=== PATIENT | male | born 1985 | race Caucasian/White ===

== ENCOUNTER 2019-05-26 08:25 | Emergency (ER) | payer BC, SELFPAY ==
[2019-05-26 08:26] VITALS: BP 156/89; PULSE 91; RESP 18; TEMP 36.5; O2SAT 97; BMI 51.4
--- NOTE | 2019-05-26 09:07 | ED.VIS.GEN ---
History of Present Illness Chief Complaint: Cellulitis Informant: Patient Onset: Yesterday Narrative: Patient presents to the ED with area of redness and warmth to his right lower leg. He states he noticed it this morning. Yesterday at work he was experiencing flulike symptoms which he describes as feeling feverish and chilled. He states that he believes he was bitten by an insect and this is what has caused this. He is an area of dry red flaky skin just proximal to this area that has been there for years. Past Medical History - Allergies and Home Meds Allergies/Adverse Reactions: Allergies No Known Allergies Allergy (Verified 05/26/19 08:25) Primary Care Physician: Care Physician,No Primary [Primary Care Provider] - Smoking Status: Never smoker Review of Systems General: Reports: Chills, Fever. Denies: Sweats Eyes: Denies: Visual changes - bilaterally, Diplopia ENT: Denies: Rhinorrhea, Sore throat Cardiovascular: Denies: Chest pain, Palpitations Respiratory: Denies: Dyspnea, Cough, Dyspnea on exertion Gastrointestinal: Denies: Abdominal pain, Nausea, Vomiting, Diarrhea, Melena, Hematochezia Genitourinary: Denies: Dysuria, Hematuria, Frequency Musculoskeletal: Denies: Back pain, Extremity Pain Skin: Reports: Rash. Denies: Wounds Neurological: Denies: Headache, Weakness, Numbness Physical Exam Vital Signs/Narrative: Vital Signs Temp Pulse Resp BP Pulse Ox 05/26/19 08:26 97.7 F L 91 18 156/89 H 97 General: Well nourished, Well developed, No Acute Distress Head: Normocephalic, Atraumatic Eyes: Perrl, EOMI ENT: Moist mucous membranes, No rhinorrhea Neck: Supple, Nontender Cardiovascular: Regular rate, Regular rhythm, No murmurs Respiratory: No distress, CTA bilaterally, Chest nontender Abdomen: Soft, Nontender, Nondistended, Normal bowel sounds Back: Nontender, Normal Inspection Extremities: Nontender, No edema Skin: - - 3 cm x 4 cm area of erythema and warmth to palpation over the right proximal anterior black. No lymphangitic streaking. Just proximal to this area there is an area of dry flaky macular erythematous skin. No induration or fluctuance. Neurological: Alert, Oriented x3, Cranial nerves II-XII grossly intact, Normal Strength, Normal Sensation Psychological: Normal affect, Normal Mood Diagnostic/Tx/Re-eval - Medical Decision Making Patient presents to the ED with area of erythema and warmth over his right lower leg. He does state that yesterday he was experiencing flulike symptoms. Upon arrival, he appears well and nontoxic. He is afebrile. On physical exam, this area does appear to be a area of cellulitis. Patient will be started on a course of Keflex. He was advised to follow-up with his PCP. He is educated on signs/symptoms to return to the ED. He was provided discharge instructions. He is agreeable to plan Disposition: Home stable. Impression: Right lower extremity cellulitis ED Disposition - Plan for ED Patient: Disposition: Home or Assisted Living Diagnosis: Cellulitis of leg without foot, right Instructions: Cellulitis Prescriptions: Cephalexin [Keflex] 500 mg PO Q6 #40 cap Prescription Printed Referrals: Care Physician,No Primary [Primary Care Provider] -
--- NOTE | 2019-05-26 09:29 | ED.RN ---
DISCHARGE INSTRUCTIONS GIVEN TO AND REVIEWED WITH PATIENT, PATIENT DENIES QUESTIONS OR CONCERNS AND VOICES UNDERSTANDING OF DISCHARGE INSTRUCTIONS. PT AMBULATES OUT OF ROOM WITHOUT DIFFICULTY.
== END 2019-05-26 09:29 | disposition home or self-care (01) ==
LOC: ED 09:25
PROVIDERS: Emergency Provider Physician Assistant
DX: L03.115 Cellulitis of right lower limb (principal)
CPT/HCPCS: 99282

== ENCOUNTER 2020-06-04 07:43 | Emergency (ER) | payer BC, SELFPAY ==
[2020-06-04 07:44] VITALS: BP 201/115; PULSE 83; RESP 15; TEMP 36.6; O2SAT 97; BMI 59.8
[2020-06-04 07:48] VITALS: BP 163/103; PULSE 79; RESP 16; TEMP 36.6; O2SAT 98
--- NOTE | 2020-06-04 07:55 | DCINST.ED_ITS ---
ED Disposition - Plan for ED Patient: Instructions: ED Tooth Pain Prescriptions: Hydrocodone Bitart/Apap 5-325 [[place] 5MG-325MG] 1 tab PO Q6H PRN PRN 2 Days #6 tab PRN Reason: Pain Prescription Printed Referrals: Care Physician,No Primary [Primary Care Provider] -
--- NOTE | 2020-06-04 07:59 | ED.DCSUM_ITS ---
- ER Visit Summary Date of Service: 06/04/20 Chief Complaint: Dental pain History of Present Illness: The patient is a 34 M presenting with dental pain. Patient complains of right lower tooth pain which started on Tuesday. He states it worsened yesterday and he went to urgent care. He was given amoxicil denise and advised to take Motrin and Tylenol for pain. He does not currently have a dentist. He denies fever, swelling or other complaints. Physical Examination: Vitals are stable. Patient is afebrile. Alert no acute distress. HEENT exam right lower molar tenderness and fracture. No surrounding fluctuance. No sublingual edema. Neck is supple. Lungs are clear and equal bilaterally. Heart is regular rate and rhythm. Extremities are unremarkable. Skin is warm and dry. Remainder of exam is unremarkable. Emergency Department Course and Treatment: Patient was advised to follow-up with dentist. He was given a dental referral list. He is advised to continue his antibiotics until complete. He is given a short course of [place]. Advised to continue ibuprofen. Advised to return to the ED for worsening complaints. Disposition: Discharge home Impression: Odontalgia This note was generated with Everbridge dictation software. It may contain incorrect words, spelling, and punctuation that were not noted in review of the chart prior to signing ED Disposition - Plan for ED Patient: Instructions: ED Tooth Pain Prescriptions: Hydrocodone Bitart/Apap 5-325 [[place] 5MG-325MG] 1 tab PO Q6H PRN PRN 2 Days #6 tab PRN Reason: Pain Prescription Printed Referrals: Care Physician,No Primary [Primary Care Provider] -
== END 2020-06-04 08:12 | disposition home or self-care (01) ==
LOC: ED 08:01
PROVIDERS: Emergency Provider Emergency Medicine
DX: K08.89 Other specified disorders of teeth and supporting structures (principal)
CPT/HCPCS: 99282

== ENCOUNTER 2020-12-29 17:45 | Emergency (ER) | payer BC, SELFPAY ==
[2020-12-29 17:46] VITALS: BP 187/109; PULSE 87; RESP 19; TEMP 35.5; O2SAT 98; BMI 60.0
--- NOTE | 2020-12-29 18:04 | ED.DCSUM_ITS ---
History of Present Illness Chief Complaint: Back Informant: Patient Narrative: 35-year-old male presents the emergency department with left lower jaw swelling and right lower back pain. Tells me that his back pain started on Tuesday after he went to see Dr. Mccoy who he is seen for knee pain. He states he does not recall doing anything with it but it was tolerable until today when it got more severe. States he worked last night. He describes his right low back. Nonradiating worse with movements. He denies any red flag history or symptoms. Normal bowel and bladder function. No fevers. The patient also states that he has decayed teeth. Of particular importance today is his left lower jaw which are decayed to the gumline. He states he saw an oral surgeon in [place] was told he needed surgery but did not have the money to pay for it. He states that they started hurting on Tuesday and now he is developed some swelling today. Past Medical History - Allergies and Home Meds Allergies/Adverse Reactions: Allergies No Known Allergies Allergy (Verified 12/29/20 17:48) Primary Care Physician: Care Physician,No Primary [Primary Care Provider] - Past Medical History: - - Morbid obesity Surgical History: noncontributory Lives: With Family Smoking Status: Never smoker Drugs: None Review of Systems General: Denies: Chills, Fever, Sweats Eyes: Denies: Visual changes - bilaterally, Diplopia ENT: Reports: - - Dental pain. Denies: Rhinorrhea, Sore throat Cardiovascular: Denies: Chest pain, Palpitations Respiratory: Denies: Dyspnea, Cough, Dyspnea on exertion Gastrointestinal: Denies: Abdominal pain, Nausea, Vomiting, Diarrhea, Melena, Hematochezia Genitourinary: Denies: Dysuria, Hematuria, Frequency Musculoskeletal: Reports: Back pain. Denies: Neck pain, Extremity Pain Skin: Denies: Rash, Wounds Neurological: Denies: Headache, Weakness, Numbness Physical Exam Vital Signs/Narrative: Vital Signs Temp Pulse Resp BP Pulse Ox 12/29/20 17:46 96 F L 87 19 H 187/109 H 98 Inital Vital Signs reviewed: Yes General: Well nourished, Well developed, Obese, No Acute Distress Head: Normocephalic, Atraumatic Eyes: Perrl, EOMI ENT: Moist mucous membranes, No rhinorrhea, - - Left lower gumline laterally demonstrates some gum swelling. The teeth are decayed to the gumline. There is no fluctuance or definitive abscess to cut into. There is no overlying facial erythema. No trismus. The floor the mouth soft. Neck: Supple, Nontender Cardiovascular: Regular rate, Regular rhythm, No murmurs Respiratory: No distress, CTA bilaterally, Chest nontender Abdomen: Soft, Nontender, Nondistended, Normal bowel sounds Back: - - Patient has tenderness to palpation over the lateral lumbar paraspinal musculature. There is no midline tenderness. There is no erythema or soft tissue changes to suggest abscess. Painful range of motion. Extremities: Nontender, No edema Skin: Normal color, No rash Neurological: Alert, Oriented x3, Cranial nerves II-XII grossly intact, Normal Strength, Normal Sensation, Normal DTR Psychological: Normal affect, Normal Mood Diagnostic/Tx/Re-eval - Medical Decision Making Patient will be started on anti-inflammatories and a few [place] and Pen-Vee K. I will also prescribe some Valium for he needs to see dentistry preferably his oral surgeon. He states he does have a primary care doctor but Dr. Mccoy I believe is internal medicine. I explained to him that back pain is typically a chronic issue as well as episodic. Given his morbid obesity I would predict that back pain will be a continued issue for him. ED Disposition - Plan for ED Patient: Disposition: Home or Assisted Living Diagnosis: Dental infection, Lumbar paraspinal muscle spasm, Low back pain Instructions: ED Back Spasm, No Trauma, ED Tooth Abscess, ED Back Pain (Acute or Chronic) Prescriptions: Ibuprofen [Motrin] 800 mg PO TID PRN PRN #20 tablet PRN Reason: Pain Transmission Status: Pending to [facility] Hydrocodone Bitart/Apap 5-325 [[place] 5MG-325MG] 1 tablet PO Q6H PRN PRN 3 Days #12 tablet PRN Reason: Pain Transmission Status: Received by [facility] Penicillin Vk [Pen-Vee K 250MG] 500 mg PO 4X/DAY #40 tablet Transmission Status: Pending to [facility] Diazepam [Valium] 5 mg PO Q8 PRN #15 tablet PRN Reason: Muscle Spasm Transmission Status: Received by [facility] Referrals: Aric Mccoy MD [STAFF PHYSICIAN] - (call to arrange follow up for your back pain ) Additional Instructions: You need to see your dentist as soon as possible.
[2020-12-29 19:13] VITALS: PULSE 73; RESP 16; O2SAT 99
== END 2020-12-29 19:13 | disposition home or self-care (01) ==
PROVIDERS: Emergency Provider Emergency Medicine
DX: M54.5 Low back pain (principal); M62.830 Muscle spasm of back; K04.7 Periapical abscess without sinus; E66.01 Morbid (severe) obesity due to excess calories
CPT/HCPCS: 99282

== ENCOUNTER 2022-04-25 12:00 | Emergency (ER) | payer OTHER, SELFPAY ==
[2022-04-25 12:01] VITALS: BP 203/81; PULSE 73; RESP 14; TEMP 36.1; O2SAT 100; BMI 69.5
--- NOTE | 2022-04-25 12:42 | EDS_ITS ---
HPI History of Present Illness Chief Complaint: Back Informant: patient Onset/Context/Timing Onset: Days Context: Gradual Onset Timing: Continuous Quality: Dull and Aching Location: Lumbar Current Severity: Mild Maximum Severity: Mild Worsened by: improves with Movement Relieved by: Remaining Still Associated Symptoms Associated Symptoms: Negative for Numbness, Tingling, Radiation to Right Leg, Radiation to Left Leg, Fever, Abdominal Pain, Dysuria, Unable to Ambulate, Unable to Transfer, Urinary Retention, Urinary Incontinence, Constipation or Fecal Incontinence Narrative Narrative: 36-year-old male past medical history of arthritis in his back. States he has had low back pain last several days. Denies any fall or trauma. He is never had back surgery. No bowel or bladder incontinence. No leg weakness or numbness. No fever. Prior similar symptoms: Yes Recent Illness/Hospitalization: No PFSH PFSH Home Medications ohrerub-fnbojwjbpebwr-mtnillcy 250 mg-250 mg-65 mg tablet 1 each PO 12/29/20 [History Last Taken Unknown] diazepam 5 mg tablet 5 mg PO Q8 PRN Muscle Spasm #15 tabs 12/29/20 [Rx Last Taken Unknown] ibuprofen 800 mg tablet 800 mg PO TID PRN PRN Pain #20 tabs 12/29/20 [Rx Last Taken Unknown] penicillin V potassium 250 mg tablet 500 mg PO 4X/DAY #40 tabs 12/29/20 [Rx Last Taken Unknown] hydrocodone-acetaminophen 5-325mg 5mg-325mg 1 tab PO Q8H PRN pain 4 days #10 tabs 04/25/22 [Rx Last Taken Unknown] prednisone 20 mg tablet 40 mg PO DAILY 7 days #14 tabs 04/25/22 [Rx Last Taken Unknown] Allergy/AdvReac Type Severity Reaction Status Date / Time No Known Allergies Allergy Verified 04/25/22 12:02 Social History Smoking Status: Never smoker ROS ROS ED Review of Systems ROS Unobtainable: Denies due to encephalopathy Constitutional Constitutional ED: Denies chills Eyes Eyes: Denies blurry vision ENT ENT ED: Denies ear pain Cardiovascular Cardiovascular: Denies chest pain Respiratory/Chest Respiratory/Chest: Denies dyspnea Gastrointestinal Gastrointestinal: Denies abdominal pain Genitourinary Genitourinary ED: Denies dysuria Musculoskeletal Musculoskeletal: Reports back pain Integumentary Denies abscess Neurologic Neurologic: Denies headache(s) Psychiatric Psychiatric: Denies anxiety Endocrine Endocrinology: Denies cold intolerance Hematologic/Lymphatic Hematologic/Lymphatic: Denies easy bleeding Allergic/Immunologic Allergic/Immunologic ED: Denies mouth swelling or tongue swelling EXAM Physical Exam Narrative Exam Narrative: 36-year-old male who is a very large individual he is 5 foot 11 and weighs close to 500 pounds. No acute distress. Sitting upright in bed. H EENT exam unremarkable. Neck nontender. Lungs clear to auscultation. Heart regular rhythm rate about 70 no murmur. Abdomen obese soft nontender. Moving all 4 extremities. Neurovascularly intact. 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 Dorsi plantarflexion intact. Negative straight leg raise bilaterally. Back exam no signs of trauma. No redness or warmth. No specific spine tenderness. He has right paralumbar tenderness. No ecchymosis or bruising. Neurologic exam unremarkable. No cauda equina. No saddle anesthesia. Const Vital Signs: 04/25/22 12:01 Temperature 97.0 F L Temperature Source Temporal Pulse Rate 73 Respiratory Rate 14 Blood Pressure 203/81 H Blood Pressure Mean 121 Pulse Ox 100 Oxygen Delivery Method Room Air Positive well nourished, well developed and obese; Negative for cachectic, contractures or unkempt General Appearance ED: well developed; Negative for unkempt, cachectic or contractures Nutritional Appearance: obese; Negative for cachectic HEENT Reports moist mucous membranes Negative for trauma Eyes PERRL General Eye ED: Negative for pale conjunctiva Neck no lymphadenopathy, supple and no JVD Resp normal respiratory effort and clear to auscultation bilaterally Effort and Inspection: Negative for pain with movement Auscultation: Negative for rales, rhonchi or wheezes Cardio regular rate, regular rhythm, S1 normal heart sound, S2 normal heart sound and no murmurs Rhythm: Negative for abnormal rhythm Bruits: Negative for other GI normal to inspection, nondistended, normoactive bowel sounds, soft to palpation, non-tender, non-distended and no masses Inspection: Negative for abdominal distention Auscultation: Negative for hyperactive bowel sounds Palpation: Negative for tender Back/Spine normal to inspection; Negative for no thoracic nor lumbar tenderness Back/Spine Narrative: Paralumbar tenderness on the right. No signs of trauma. No redness or warmth. Cervical Spine: Negative for cervical spine tenderness Thoracic Spine / Upper Back: paraspinal muscle tenderness Extremity normal to inspection and no clubbing, cyanosis or edema General Extremety ED: Negative for edema or other findings General Extremity: Negative for edema or other findings Neuro oriented x3 Sensorium / Orientation: alert; Negative for confused, lethargic or stuporous Motor Exam: strength 5/5 throughout Psych mental status grossly normal Appearance: Negative for unkempt Attitude: No agitated Mood & Affect: Negative for depressed, sad or tearful Skin no rashes or lesions noted and no wounds General Skin Exam: Negative for jaundice Lesions: No lesion noted Rashes: No rashes noted Trauma: Negative for abrasion Wounds: Negative for wounds noted MDM MDM MDM Narrative Medical decision making narrative: 36-year-old male with acute on chronic back pain. Exam is benign. He has reproducible pain. He does have a history of osteoarthritis. He states being on steroids helped him in the past. Given a single Elizabeth here. Off work today. Continue anti-inflammatories follow-up with her primary care physician. Patient and I had a blunt discussion about weight loss and getting in better shape which would help him with his back pain. Discharge Plan Triage Chief Complaint: Back ED Provider: Roddy Hadley Dx/Rx/DC Orders Clinical Impression: Back pain, History of arthritis Instructions: ED Back Pain (Acute or Chronic) Prescriptions: New prednisone 20 mg tablet 40 mg PO DAILY 7 Days Qty: 14 0RF hydrocodone-acetaminophen 5-325 mg tablet 1 tab PO Q8H PRN (Reason: pain) 4 Days Qty: 10 0RF No Action [id number] 1 EACH tablet 1 each PO ibuprofen 800 MG tablet 800 mg PO TID PRN PRN (Reason: Pain) Qty: 20 0RF diazepam 5 MG tablet 5 mg PO Q8 PRN (Reason: Muscle Spasm) Qty: 15 0RF penicillin V potassium 250 MG tablet 500 mg PO 4X/DAY Qty: 40 0RF Primary Care Provider: Care Physician,No Primary Referrals: Abimael Rudolph MD [STAFF PHYSICIAN] - As soon as possible Care Physician,No Primary [Primary Care Provider] - Activity Restrictions/Additional Instructions: Prednisone daily for your back. Motrin for pain and inflammation. Limited Elizabeth. Follow-up with a primary care physician to get started on a weight loss program and exercise program. Disposition Disposition: Home, Self Care
[2022-04-25] MEDS: HYDROcodone Bitartrate/Apap 5/325 Tablet PO (12:53)
[2022-04-25] MEDS: predniSONE 20 MG Tablet 40 MG PO (12:53)
== END 2022-04-25 13:07 | disposition home or self-care (01) ==
PROVIDERS: Emergency Provider Emergency Medicine; Visit Provider Emergency Medicine
DX: M54.9 Dorsalgia, unspecified (principal); G89.29 Other chronic pain; M19.90 Unspecified osteoarthritis, unspecified site; E66.9 Obesity, unspecified
CPT/HCPCS: 99283